=== PATIENT | female | born 1965 | race Caucasian/White ===

== ENCOUNTER 2019-11-24 09:39 | Emergency (ER) | payer OTHER, SELFPAY ==
[2019-11-24 09:41] VITALS: BP 148/85; PULSE 95; RESP 17; TEMP 36.8; O2SAT 100; BMI 28.3
--- NOTE | 2019-11-24 09:48 | RAD_ITS ---
STUDY: X-RAY - LEFT HAND REASON FOR EXAM: Female, 54 years old. PAIN TO INDEX FINGER. HX FALL TECHNIQUE: 3 view(s) of the hand. COMPARISON: None. FINDINGS: Normal radiocarpal articulation. Normal distal radioulnar joint. Normal visualized carpal bones. Normal carpal articulations Normal carpometacarpal articulation of the thumb. Normal second through fifth carpometacarpal joints. Normal metacarpi. Normal metacarpophalangeal joint of the thumb. Normal interphalangeal joint of the thumb. Normal proximal and distal phalanges of the thumb. Normal metacarpophalangeal joints of the second through fifth fingers. Mild dorsal subluxation of the proximal interphalangeal joint of the index finger. Normal phalanges of the second through fifth fingers. Soft tissue swelling RAD/Hand Min 3 Views IMPRESSION: Partial dorsal subluxation of the proximal interphalangeal joint of the index finger with overlying soft tissue swelling. Electronically Signed: Ed Martell, at 10:30 EDT , Service support ,
--- NOTE | 2019-11-24 09:51 | ED.DCSUM_ITS ---
History of Present Illness Chief Complaint: Upper Extremity Injury Informant: Patient Onset: Today Context: Sudden Onset Timing: Continuous Current Severity: Moderate Maximum Severity: Moderate Narrative: The patient is an otherwise healthy 54-year-old female that presents to the emergency department with left second finger injury. Patient was walking. She tripped over a curb and fell forward. She try to catch herself with an outstretched hand. She states she felt something pop in her finger. She noticed immediate deformity. She presented here. She denies any tingling or numbness in the hand. She does describe some pain. She is on no daily medications. Prior similar symptoms: No Recent Illness/Hospitalization: No Past Medical History - Allergies and Home Meds Allergies/Adverse Reactions: Allergies Penicillins Allergy (Verified 11/24/19 09:41) Hives azithromycin [From Zithromax Z-Umer] Adverse Reaction (Verified 11/24/19 09:41) Vomiting Primary Care Physician: Aileen Dyer DO [STAFF PHYSICIAN] - 1 Week Prior records reviewed: Yes Past Medical History: None Surgical History: noncontributory Review of Systems General: Denies: Chills, Fever, Sweats Eyes: Denies: Visual changes - bilaterally, Diplopia ENT: Denies: Rhinorrhea, Sore throat Cardiovascular: Denies: Chest pain, Palpitations Respiratory: Denies: Dyspnea, Cough, Dyspnea on exertion Gastrointestinal: Denies: Abdominal pain, Nausea, Vomiting, Diarrhea, Melena, Hematochezia Genitourinary: Denies: Dysuria, Hematuria, Frequency Musculoskeletal: Denies: Back pain, Extremity Pain Skin: Denies: Rash, Wounds Neurological: Denies: Headache, Weakness, Numbness Physical Exam Vital Signs/Narrative: Vital Signs Temp Pulse Resp BP Pulse Ox 11/24/19 09:41 98.3 F 95 17 148/85 H 100 Inital Vital Signs reviewed: Yes General: Well nourished, Well developed Head: Normocephalic, Atraumatic Eyes: Perrl, EOMI ENT: Moist mucous membranes Neck: Supple Cardiovascular: Regular rate, Regular rhythm Respiratory: No distress, CTA bilaterally Abdomen: Soft Extremities: Tenderness - Patient has deformity at the PIP of the left second digit. Cap refill is less than 2 seconds. Sensation preserved to light touch. Skin is intact. Neurological: Alert, Oriented x3 Psychological: Normal affect Diagnostic/Tx/Re-eval - Medical Decision Making Plain films were obtained. The patient has dislocation at the PIP of the left second finger. Again, she is neurovascular intact. There is no evidence of fracture. Digital block was performed of the left index finger using 7 cc of bupivacaine. Once anesthesia was achieved, the patient was easily reduced. She was placed into the [facility] finger splint and will be given outpatient orthopedic follow-up. Impression 1. Left index finger PIP dislocation. 2. Reduction of dislocation ED Disposition - Plan for ED Patient: Instructions: ED Dislocation Finger Redu Referrals: Aileen Dyer DO [STAFF PHYSICIAN] - 1 Week
[2019-11-24] MEDS: Bupivacaine Mpf 0.5% 30 ML VIAL INFILT (10:09)
[2019-11-24 11:00] VITALS: PULSE 98; RESP 17
== END 2019-11-24 11:01 | disposition home or self-care (01) ==
PROVIDERS: Emergency Provider Emergency Medicine
DX: S63.281A Dislocation of proximal interphalangeal joint of left index finger, initial encounter (principal); W10.1XXA Fall (on)(from) sidewalk curb, initial encounter; Y93.01 Activity, walking, marching and hiking; Y92.9 Unspecified place or not applicable
CPT/HCPCS: 26770; 73130; 99282